=== PATIENT | male | born 1940 | race Caucasian/White ===

== ENCOUNTER 2017-10-31 08:15 | Outpatient (CLI) | payer MEDICARE, OTHER ==
[~2017-10-31] VITALS: Ht 188 cm; Wt 102.3 kg
[2017-10-31 08:35] LABS: BASOPHILS 0.3 % (0-2); EOSINOPHILS 0.8 % (0-7); HEMATOCRIT 43.2 % (42.0-54.0); HEMOGLOBIN 13.9 g/dL (13.5-17.5); IMMATURE GRANULOCYTES 0.2 % (0-5); LYMPHOCYTES 15.7 % (15-50); MCH 29.8 pg (26.0-34.0); MCHC 32.2 g/dL (31.0-37.0); MCV 92.5 fL (80.0-100.0); MEAN PLATELET VOLUME 10.7 fL (7.4-10.4); MONOCYTES 14.1 % (2-11); NEUTROPHILS 68.9 % (40-80); PLATELET COUNT 404 10x3/uL (130-400); RBC 4.67 10x6/uL (4.20-6.10); RDW 13.5 % (11.5-14.5)
[2017-10-31 08:48] LABS: ANION GAP 5.5 mmol/L (8-16); CARBON DIOXIDE 33.6 mmol/L (21.0-32.0); CREATININE - SERUM 1.2 mg/dL (0.6-1.3); POTASSIUM - SERUM 4.1 mmol/L (3.5-5.1)
[2017-10-31 08:50] LABS: APTT 31.7 SECONDS (22.8-39.4); INR 1.18 (0.85-1.17); PROTIME 14.6 SECONDS (11.6-15.0)
[2017-10-31] MEDS ORDERED: TOPROL XL100 MG (09:02)
[2017-10-31] MEDS ORDERED: PRINIVIL20 MG (09:02)
[2017-10-31] MEDS ORDERED: ZOCOR20 MG PO (09:04)
[2017-10-31] MEDS ORDERED: FLOMAX0.4 MG PO (09:05)
[2017-10-31] MEDS ORDERED: PROSCAR5 MG (09:05)
[2017-10-31] MEDS ORDERED: ASPIRIN81 MG PO (09:05)
[2017-10-31] MEDS ORDERED: NORCO 7.5/325 T1 TA1 (09:06)
[2017-10-31 09:17] VITALS: BP 136/71; Ht 188 cm; Wt 102.3 kg
[2017-10-31 10:52] LABS: CALCIUM 12.8 mg/dL (8.5-10.1)
== END 2017-10-31 15:00 | disposition home or self-care (01) ==
LOC: D.SP 08:15 → D.CT 11:00 → D.SP 11:00
PROVIDERS: Specialist
DX: C44.310 Basal cell carcinoma of skin of unspecified parts of face (principal); M89.9 Disorder of bone, unspecified; Z01.812 Encounter for preprocedural laboratory examination